=== PATIENT | male | born 1960 | race Caucasian/White ===

== ENCOUNTER 2021-02-13 17:14 | Inpatient (IN) | payer SELFPAY ==
[~2021-02-13] VITALS: Ht 175.3 cm; Wt 95.0 kg
--- NOTE | 2021-02-13 17:48 | NUR ---
DR. RODRIGUEZ TO [facility] EVAL
[2021-02-13] MEDS ORDERED: SODIUM CHLORIDE FLUSH 10ML SYR IVF ONE (18:00)
--- NOTE | 2021-02-13 18:09 | NUR ---
BILATERAL LOWER LEG SWELLING, SOB HAVE NOT BEEN VACCINATED FOR COVID-19 HR IN 140'S PT ATTACHED TO MONITORS. MEDICATED PER EMAR.
[2021-02-13 18:26] LABS: BASOPHILS % (AUTO) 1 % (0-1); EOSINOPHILS % (AUTO) 3 % (1-7); LYMPHOCYTES % (AUTO) 15 % (22-44); MEAN CORPUSCULAR HEMOGLOBIN 30.6 pg (27.5-34.5); MEAN CORPUSCULAR HGB CONC 33.1 g/dL (33.2-36.2); MEAN PLATELET VOLUME 8.3 fL (7.4-10.4); MONOCYTES % (AUTO) 8 % (2-9); NEUTROPHILS % (AUTO) 73 % (42-75); PLATELET COUNT 290 x10^3/uL (130-400); RED BLOOD COUNT 4.25 x10^6/uL (4.38-5.82); RED CELL DISTRIBUTION WIDTH 14.7 % (9.4-14.8)
[2021-02-13 18:36] LABS: ANION GAP 6 mmol/L (5-15); CALCIUM 8.2 mg/dL (8.5-10.1); CHLORIDE 110 mmol/L (98-107)
[2021-02-13 18:42] LABS: ALANINE AMINOTRANSFERASE 34 U/L (12-78); ALKALINE PHOSPHATASE 117 U/L (45-117); BILIRUBIN,TOTAL 0.7 mg/dL (0.2-1.0); CREATININE 1.17 mg/dL (0.7-1.3); TOTAL PROTEIN 6.5 g/dL (6.4-8.2); TROPONIN I 0.075 ng/mL (0.000-0.045)
--- NOTE | 2021-02-13 18:45 | NUR ---
REPORT TO AREN
--- NOTE | 2021-02-13 19:01 | NUR ---
PT CURRENTLY IN ULTRASOUND AT THIS TIME, AND WILL RECEIVED A CTA FROM US IN CT, THEN BACK TO ER.
[2021-02-13] MEDS ORDERED: OMNIPAQUE 350 MG/ML, 75ML BOTTLE ONE (19:24)
--- NOTE | 2021-02-13 19:30 | NUR ---
PT RETURNED FROM CT SCAN, PT PLACED ON CR MONITOR, AND SAYS HE'S FINE. PT DENIES PAIN, DENIES SHORTNESS OF BREATH AT THIS TIME, BUT IS SATURATING AT 92% AND O2 NC PLACED FOR COMFORTA, AND TO KEEP SATS >94%. PT IN GOOD SPIRITS AND SO AT BEDSIDE, AND PT WAITING ON TEST RESULTS.
--- NOTE | 2021-02-13 19:50 | NUR ---
PT ADVISED TO PROVIDE A URINE SAMPLE WHEN HE NEEDS TO GO TO THE RESTROOM, AND PT V/U.
--- NOTE | 2021-02-13 19:55 | NUR ---
PT PROVIDED SOME WATER TO DRINK, HE WAS REQUESTING IT TO BE ABLE TO URINATE.
[2021-02-13] MEDS ORDERED: CEFTRIAXONE 1,000 MG in DEXTROSE 5% 50 ML IVPB ONE (20:00)
[2021-02-13] MEDS ORDERED: CEFAZOLIN PMX 1GM/50ML 0 ML ONE (20:03)
[2021-02-13] MEDS ORDERED: VANCOMYCIN PER PHARMACY MC PRN (20:30)
[2021-02-13] MEDS ORDERED: ONDANSETRON 2MG/ML, 2ML IV PRN (20:30)
[2021-02-13] MEDS ORDERED: SODIUM CHLORIDE FLUSH 10ML SYR IVF PRN (20:30)
[2021-02-13] MEDS ORDERED: ACETAMINOPHEN 650 MG/20.3 ML UDC PO PRN (20:30)
--- NOTE | 2021-02-13 20:54 | NUR ---
REPORT CALLED TO JUANI RN, AND PT READY TO GO UPSTAIRS.
[2021-02-13 20:59] LABS: TROPONIN I 0.078 ng/mL (0.000-0.045)
[2021-02-13 21:13] VITALS: BP 145/120
[2021-02-13] MEDS ORDERED: PHARMACOKINETIC CONSULTATION MC ONE (21:30)
[2021-02-13] MEDS ORDERED: PHARMACOKINETIC MONITORING MC PRN (21:30)
[2021-02-13] MEDS ORDERED: VANCOMYCIN 2,500 MG in SODIUM CHLORIDE 0.9% 500 ML IV ONE (21:30)
[2021-02-13] MEDS ORDERED: LABETALOL 5MG/ML, 20ML IVPush PRN (22:00)
[2021-02-13] MEDS ORDERED: METOPROLOL SUCCINATE 25 MG TAB.ER.24H PO ONE (22:00)
[2021-02-13] MEDS: FUROSEMIDE 20 MG/2 ML IVPush SCH (22:20)
[2021-02-13] MEDS: ATORVASTATIN 20 MG TABLET PO SCH (22:20)
[2021-02-13] MEDS: ENOXAPARIN 40 MG/0.4 ML SQ SCH (22:20)
[2021-02-13] MEDS: AMPICILLIN/SULBACTAM 3 GM in SODIUM CHLORIDE 0.9% 100 ML IV SCH (22:58)
[2021-02-13 23:45] VITALS: BP 164/118
[2021-02-14 00:49] VITALS: BP 142/115
[2021-02-14] MEDS: METOPROLOL 1 MG/ML, 5ML IVPush PRN ×2 (02:04→02:37)
[2021-02-14 02:31] VITALS: BP 146/110
[2021-02-14 03:08] VITALS: BP 140/117
[2021-02-14 03:17] LABS: TROPONIN I 0.071 ng/mL (0.000-0.045)
[2021-02-14 03:22] LABS: ANION GAP 6 mmol/L (5-15); CALCIUM 8.5 mg/dL (8.5-10.1); CHLORIDE 108 mmol/L (98-107); CREATININE 1.04 mg/dL (0.7-1.3)
[2021-02-14] MEDS ORDERED: POTASSIUM CHLORIDE 20 MEQ TAB.ER.PRT PO ONE ×2 (04:00→06:30)
[2021-02-14] MEDS ORDERED: MAGNESIUM SULFATE PMX 2GM/50ML 50 ML IV ONE (04:00)
[2021-02-14] MEDS: AMPICILLIN/SULBACTAM 3 GM in SODIUM CHLORIDE 0.9% 100 ML IV SCH ×3 (05:24→18:40)
[2021-02-14] MEDS ORDERED: METOPROLOL SUCCINATE 50 MG TAB.ER.24H PO SCH ×2 (09:00→21:00)
[2021-02-14 10:00] VITALS: BP 136/105
[2021-02-14] MEDS ORDERED: VANCOMYCIN 2,000 MG in SODIUM CHLORIDE 0.9% 500 ML IV ONE (10:00)
[2021-02-14] MEDS: POTASSIUM CHLORIDE 20 MEQ TAB.ER.PRT PO SCH (10:09)
[2021-02-14] MEDS: FUROSEMIDE 20 MG/2 ML IVPush SCH (10:10)
[2021-02-14] MEDS: LISINOPRIL 10 MG TABLET PO SCH (10:10)
[2021-02-14] MEDS ORDERED: METOPROLOL TARTRATE 50 MG TAB PO ONE (10:28)
[2021-02-14] MEDS ORDERED: METOPROLOL TARTRATE 25 MG TAB PO ONE (10:30)
[2021-02-14 12:02] LABS: AMPHETAMINE SCREEN, URINE Positive (Negative); BARBITURATE SCREEN, URINE Negative (Negative); BENZODIAZEPINE SCREEN, URINE Negative (Negative); CANNABINOID SCREEN, URINE Positive (Negative); COCAINE SCREEN, URINE Negative (Negative); METHADONE SCREEN, URINE Negative (Negative); OPIATE SCREEN, URINE Negative (Negative)
[2021-02-14] MEDS: VANCOMYCIN 1,800 MG in SODIUM CHLORIDE 0.9% 250 ML IV SCH (13:07)
[2021-02-14 14:00] VITALS: BP 129/98
[2021-02-14 16:01] LABS: ANION GAP 6 mmol/L (5-15); CALCIUM 8.7 mg/dL (8.5-10.1); CHLORIDE 103 mmol/L (98-107); CREATININE 1.42 mg/dL (0.7-1.3)
[2021-02-14] MEDS: FUROSEMIDE 40 MG/4 ML IV SCH (18:00)
[2021-02-14] MEDS ORDERED: DILTIAZEM 125 MG in SODIUM CHLORIDE 0.9% 100 ML IV SCH (18:00)
[2021-02-14] MEDS ORDERED: METOPROLOL TARTRATE 50 MG TAB PO SCH (18:00)
[2021-02-14 19:34] VITALS: BP 136/91
[2021-02-14] MEDS: ENOXAPARIN 40 MG/0.4 ML SQ SCH (21:40)
[2021-02-14] MEDS: ATORVASTATIN 20 MG TABLET PO SCH (21:40)
[2021-02-15] MEDS: AMPICILLIN/SULBACTAM 3 GM in SODIUM CHLORIDE 0.9% 100 ML IV SCH ×4 (00:56→18:18)
[2021-02-15 00:59] VITALS: BP 133/101
[2021-02-15] MEDS: VANCOMYCIN 1,800 MG in SODIUM CHLORIDE 0.9% 250 ML IV SCH (01:53)
[2021-02-15 03:34] VITALS: BP 135/92
[2021-02-15] MEDS ORDERED: VANCOMYCIN 2,000 MG in SODIUM CHLORIDE 0.9% 500 ML IV SCH (04:00)
[2021-02-15 05:14] LABS: BASOPHILS % (AUTO) 0 % (0-1); EOSINOPHILS % (AUTO) 2 % (1-7); LYMPHOCYTES % (AUTO) 19 % (22-44); MEAN CORPUSCULAR HEMOGLOBIN 31.1 pg (27.5-34.5); MEAN CORPUSCULAR HGB CONC 33.4 g/dL (33.2-36.2); MEAN PLATELET VOLUME 8.6 fL (7.4-10.4); MONOCYTES % (AUTO) 10 % (2-9); NEUTROPHILS % (AUTO) 70 % (42-75); PLATELET COUNT 294 x10^3/uL (130-400); RED BLOOD COUNT 4.31 x10^6/uL (4.38-5.82); RED CELL DISTRIBUTION WIDTH 14.5 % (9.4-14.8)
[2021-02-15 05:19] LABS: ALANINE AMINOTRANSFERASE 109 U/L (12-78); ANION GAP 8 mmol/L (5-15); CALCIUM 8.4 mg/dL (8.5-10.1); CHLORIDE 107 mmol/L (98-107); CREATININE 1.04 mg/dL (0.7-1.3)
[2021-02-15 05:21] LABS: ALKALINE PHOSPHATASE 110 U/L (45-117); BILIRUBIN,TOTAL 1.3 mg/dL (0.2-1.0); TOTAL PROTEIN 6.5 g/dL (6.4-8.2)
[2021-02-15 06:29] VITALS: BP 125/86
[2021-02-15 07:17] LABS: TROPONIN I 0.048 ng/mL (0.000-0.045)
[2021-02-15] MEDS ORDERED: DIGOXIN 0.25 MG/ML, 2ML ONE (09:17)
[2021-02-15] MEDS ORDERED: CARVEDILOL 6.25 MG TABLET ONE (09:18)
[2021-02-15] MEDS ORDERED: SPIRONOLACTONE 25 MG TABLET ONE (09:18)
[2021-02-15] MEDS: SPIRONOLACTONE 25 MG TABLET PO SCH (09:20)
[2021-02-15] MEDS: CARVEDILOL 6.25 MG TABLET PO SCH ×3 (09:20→22:21)
[2021-02-15] MEDS: POTASSIUM CHLORIDE 20 MEQ TAB.ER.PRT PO SCH (09:20)
[2021-02-15] MEDS: LISINOPRIL 10 MG TABLET PO SCH (09:20)
[2021-02-15] MEDS: FUROSEMIDE 40 MG/4 ML IV SCH ×2 (09:21→16:55)
[2021-02-15] MEDS ORDERED: DIGOXIN 0.25 MG/ML, 2ML IVPush ONE (09:30)
[2021-02-15] MEDS ORDERED: HEPARIN 25,000 UNITS/250ML PMX 250 ML IV PRN (09:30)
[2021-02-15] MEDS ORDERED: HEPARIN 5,000 UNITS/ML, 1ML IV ONE (10:30)
[2021-02-15 12:13] VITALS: BP 125/86
[2021-02-15] MEDS: HEPARIN 25,000 UNITS/250ML PMX 250 ML IV PRN (12:18)
[2021-02-15] MEDS: METOPROLOL 1 MG/ML, 5ML IVPush PRN ×2 (16:14→16:55)
[2021-02-15] MEDS ORDERED: DILTIAZEM 125 MG in SODIUM CHLORIDE 0.9% 100 ML IV SCH (18:00)
[2021-02-15 18:55] VITALS: BP 154/112
[2021-02-15] MEDS ORDERED: VANCOMYCIN 1,800 MG in SODIUM CHLORIDE 0.9% 250 ML IV SCH (20:00)
[2021-02-15] MEDS: HEPARIN 5,000 UNITS/ML, 1ML IV PRN (20:27)
[2021-02-15 21:41] LABS: INTERNATIONAL NORMALIZED RATIO 1.42 (0.93-1.1); PROTHROMBIN TIME 14.9 Seconds (9.6-11.5)
[2021-02-15] MEDS ORDERED: WARFARIN 7.5 MG TABLET PO-COUM ONE (22:00)
[2021-02-16] VITALS (9 sets, daily range): BP systolic 118–163; BP diastolic 78–91
[2021-02-16] MEDS: AMPICILLIN/SULBACTAM 3 GM in SODIUM CHLORIDE 0.9% 100 ML IV SCH ×2 (00:52→06:32)
[2021-02-16 02:56] LABS: BASOPHILS % (AUTO) 1 % (0-1); EOSINOPHILS % (AUTO) 2 % (1-7); LYMPHOCYTES % (AUTO) 14 % (22-44); MEAN CORPUSCULAR HEMOGLOBIN 30.7 pg (27.5-34.5); MEAN CORPUSCULAR HGB CONC 33.3 g/dL (33.2-36.2); MONOCYTES % (AUTO) 8 % (2-9); NEUTROPHILS % (AUTO) 76 % (42-75); PLATELET COUNT 261 x10^3/uL (130-400); RED BLOOD COUNT 4.31 x10^6/uL (4.38-5.82); RED CELL DISTRIBUTION WIDTH 14.6 % (9.4-14.8)
[2021-02-16 03:07] LABS: INTERNATIONAL NORMALIZED RATIO 1.33 (0.93-1.1)
[2021-02-16 03:09] LABS: ALANINE AMINOTRANSFERASE 106 U/L (12-78); ALBUMIN 2.5 g/dL (3.4-5.0); ANION GAP 7 mmol/L (5-15); CALCIUM 7.9 mg/dL (8.5-10.1); CHLORIDE 103 mmol/L (98-107); CREATININE 1.08 mg/dL (0.7-1.3)
[2021-02-16 03:11] LABS: ALKALINE PHOSPHATASE 103 U/L (45-117); BILIRUBIN,TOTAL 0.6 mg/dL (0.2-1.0); TOTAL PROTEIN 5.9 g/dL (6.4-8.2)
[2021-02-16] MEDS: HEPARIN 5,000 UNITS/ML, 1ML IV PRN ×3 (03:36→17:28)
[2021-02-16] MEDS: CARVEDILOL 6.25 MG TABLET PO SCH ×2 (06:33→14:21)
[2021-02-16] MEDS ORDERED: POTASSIUM CHLORIDE 20 MEQ TAB.ER.PRT PO ONE ×2 (07:00)
[2021-02-16] MEDS ORDERED: MAGNESIUM SULFATE PMX 2GM/50ML 50 ML IV ONE ×2 (07:00→13:00)
[2021-02-16] MEDS ORDERED: DILTIAZEM 125 MG in SODIUM CHLORIDE 0.9% 100 ML IV SCH (07:30)
[2021-02-16] MEDS: FUROSEMIDE 40 MG/4 ML IV SCH ×2 (08:03→17:28)
[2021-02-16] MEDS: LISINOPRIL 10 MG TABLET PO SCH (08:04)
[2021-02-16] MEDS: SPIRONOLACTONE 25 MG TABLET PO SCH (08:04)
[2021-02-16] MEDS: POTASSIUM CHLORIDE 20 MEQ TAB.ER.PRT PO SCH (08:22)
[2021-02-16] MEDS: WARFARIN MODERAT DOSE PROTOCOL XX SCH (11:45)
[2021-02-16] MEDS: DIGOXIN 0.25 MG TABLET PO SCH (12:19)
[2021-02-16] MEDS ORDERED: FUROSEMIDE 40 MG/4 ML IV ONE (13:30)
[2021-02-16] MEDS ORDERED: DIGOXIN 0.25 MG/ML, 2ML IVPush ONE (17:00)
[2021-02-16] MEDS ORDERED: WARFARIN 10 MG TABLET PO-COUM ONE (18:00)
[2021-02-16] MEDS ORDERED: NICOTINE 14MG/24 HR PATCH.TD24 ONE (18:38)
[2021-02-16] MEDS: NICOTINE 14MG/24 HR PATCH.TD24 TD SCH (18:40)
[2021-02-16] MEDS ORDERED: VANCOMYCIN 1,800 MG in SODIUM CHLORIDE 0.9% 250 ML IV SCH (20:00)
[2021-02-16] MEDS: CARVEDILOL 12.5 MG TABLET PO SCH (22:08)
[2021-02-17] VITALS (7 sets, daily range): BP systolic 128–160; BP diastolic 75–98
[2021-02-17] MEDS: HEPARIN 25,000 UNITS/250ML PMX 250 ML IV PRN (05:27)
[2021-02-17] MEDS: CARVEDILOL 12.5 MG TABLET PO SCH ×3 (05:31→21:22)
[2021-02-17 06:20] LABS: ANION GAP 3 mmol/L (5-15); CALCIUM 8.2 mg/dL (8.5-10.1); CHLORIDE 100 mmol/L (98-107); INTERNATIONAL NORMALIZED RATIO 2.12 (0.93-1.1); PROTHROMBIN TIME 21.9 Seconds (9.6-11.5)
[2021-02-17] MEDS: HEPARIN 5,000 UNITS/ML, 1ML IV PRN (06:25)
[2021-02-17] MEDS ORDERED: POTASSIUM CHLORIDE 20 MEQ TAB.ER.PRT PO ONE ×2 (07:11→07:30)
[2021-02-17] MEDS ORDERED: MAGNESIUM SULFATE/D5W 100 ML IV ONE (07:30)
[2021-02-17] MEDS ORDERED: DILTIAZEM 5 MG/ML, 5ML IVPush ONE (09:00)
[2021-02-17] MEDS ORDERED: MAGNESIUM SULFATE PMX 2GM/50ML 50 ML IV ONE (09:00)
[2021-02-17] MEDS: FUROSEMIDE 40 MG/4 ML IV SCH ×2 (09:16→17:44)
[2021-02-17] MEDS: DILTIAZEM 120 MG CAP.ER.24H PO SCH (09:17)
[2021-02-17] MEDS: SPIRONOLACTONE 25 MG TABLET PO SCH (09:18)
[2021-02-17] MEDS: DIGOXIN 0.25 MG TABLET PO SCH (09:18)
[2021-02-17] MEDS: LISINOPRIL 5 MG TABLET PO SCH (09:18)
[2021-02-17] MEDS: POTASSIUM CHLORIDE 20 MEQ TAB.ER.PRT PO SCH ×2 (09:34→21:22)
[2021-02-17] MEDS: WARFARIN MODERAT DOSE PROTOCOL XX SCH (12:32)
[2021-02-17] MEDS: NICOTINE 14MG/24 HR PATCH.TD24 TD SCH (17:44)
[2021-02-17] MEDS ORDERED: WARFARIN 7.5 MG TABLET PO-COUM ONE (18:00)
[2021-02-18 00:18] VITALS: BP 135/89
[2021-02-18] MEDS: CARVEDILOL 12.5 MG TABLET PO SCH ×2 (05:50→14:06)
[2021-02-18 06:27] LABS: INTERNATIONAL NORMALIZED RATIO 3.11 (0.93-1.1); PROTHROMBIN TIME 31.5 Seconds (9.6-11.5)
[2021-02-18 06:30] LABS: CHLORIDE 104 mmol/L (98-107)
[2021-02-18 06:35] LABS: ANION GAP 4 mmol/L (5-15); CALCIUM 8.7 mg/dL (8.5-10.1); CREATININE 1.27 mg/dL (0.7-1.3)
[2021-02-18 07:54] VITALS: BP 138/81
[2021-02-18] MEDS ORDERED: FUROSEMIDE 20 MG TABLET PO SCH (09:00)
[2021-02-18] MEDS: POTASSIUM CHLORIDE 20 MEQ TAB.ER.PRT PO SCH (09:53)
[2021-02-18] MEDS: DIGOXIN 0.25 MG TABLET PO SCH (09:53)
[2021-02-18] MEDS: FUROSEMIDE 40 MG/4 ML IV SCH ×2 (09:53→17:00)
[2021-02-18] MEDS: SPIRONOLACTONE 25 MG TABLET PO SCH (09:54)
[2021-02-18] MEDS: DILTIAZEM 120 MG CAP.ER.24H PO SCH (09:54)
[2021-02-18] MEDS: LISINOPRIL 5 MG TABLET PO SCH (09:54)
[2021-02-18] MEDS: WARFARIN MODERAT DOSE PROTOCOL XX SCH (12:00)
[2021-02-18 14:03] VITALS: BP 147/89
[2021-02-18] MEDS ORDERED: POTA20TA6 PO ×3 (14:18→14:19)
[2021-02-18] MEDS ORDERED: CARV12.52 PO (14:18)
[2021-02-18] MEDS ORDERED: FURO20TA3 PO (14:18)
[2021-02-18] MEDS ORDERED: APIX5TAB PO (14:18)
[2021-02-18] MEDS ORDERED: SPIR25TA PO (14:18)
[2021-02-18] MEDS ORDERED: LISI5TAB7 PO (14:18)
[2021-02-18] MEDS ORDERED: DIGO250T3 PO (14:18)
[2021-02-18] MEDS ORDERED: DILT120C2 PO (14:18)
[2021-02-18] MEDS ORDERED: WARFARIN 3 MG TABLET PO-COUM ONE (18:00)
== END 2021-02-18 18:09 | disposition home health service (06) | DRG 280 ==
LOC: ED 18:00 → EDIP 20:11 → 5SO 21:06
PROVIDERS: ADMIT Internal Medicine; ATTEND Internal Medicine
DX: I16.1 Hypertensive emergency (principal); I21.A1 Myocardial infarction type 2; I50.43 Acute on chronic combined systolic (congestive) and diastolic (congestive) heart failure; L03.115 Cellulitis of right lower limb; I48.92 Unspecified atrial flutter; D68.59 Other primary thrombophilia; I42.9 Cardiomyopathy, unspecified; I11.0 Hypertensive heart disease with heart failure; Z20.822 Contact with and (suspected) exposure to COVID-19; E87.6 Hypokalemia; E83.42 Hypomagnesemia; I48.91 Unspecified atrial fibrillation; E66.01 Morbid (severe) obesity due to excess calories; I08.1 Rheumatic disorders of both mitral and tricuspid valves; I27.20 Pulmonary hypertension, unspecified; F15.129 Other stimulant abuse with intoxication, unspecified; Z68.32 Body mass index [BMI] 32.0-32.9, adult; Z91.14 Patient's other noncompliance with medication regimen; Z79.899 Other long term (current) drug therapy; Z79.01 Long term (current) use of anticoagulants
CPT/HCPCS: 36415; 84145; 96365; 96375; 99291; C8929; 71045; 71275; 80048; 80053; 80202; 80307; 83605; 83735; 83880; 84100; 84484; 85025; 85520; 85610; 87040; 93005; 93970; G0378; J0295; J0696; J1644; J1650; J1940; J3370; Q9957; Q9967; U0005; J1160; J3475; J7040; J7050; U0003